=== PATIENT | female | born 1940 | race Caucasian/White ===

== ENCOUNTER 2023-07-03 17:13 | Observation (INO) | payer MEDICARE, SELFPAY ==
[2023-07-03] MEDS ORDERED: Ondansetron PF 4 MG/2 ML Vial IVP PRN (20:28)
[2023-07-03] MEDS ORDERED: Senokot S 8.6-50 MG TAB PO PRN (20:28)
[2023-07-03] MEDS ORDERED: Guaifenesin DM 100-10/5 ML UDCUP PO PRN (20:28)
[2023-07-03] MEDS ORDERED: Acetaminophen 325 MG TAB PO PRN (20:28)
[2023-07-03] MEDS ORDERED: Calcium Carbonate 500 MG ChewTAB PO PRN (20:28)
[2023-07-03 20:46] VITALS: BMI 17.9
[2023-07-03] MEDS ORDERED: Tacrolimus 1 MG CAP PO SCH (21:00)
[2023-07-03] MEDS ORDERED: Lidocaine 2% Viscous Solution 10 ML, Aluminum & Magnesium Hydroxide 30 ML SSW SCH (21:00)
[2023-07-03] MEDS ORDERED: Famotidine/PF 20 mg/2ml Vial SLOW IVP SCH (21:00)
[2023-07-03 21:07] LABS: Anion Gap 14 mmol/L (10-20); BUN (Urea Nitrogen) 16 mg/dL (9.8-20.1); Calc. Creatinine Clearance 31 mL/min (70-130); Calcium 7.8 mg/dL (7.8-10.44); Carbon Dioxide 21 mmol/L (23-31); Chloride 105 mmol/L (98-107); Estimated GFR 50; Glucose 263 mg/dL (83-110); Magnesium 2.2 mg/dL (1.6-2.6); Sodium 136 mmol/L (136-145)
[2023-07-03 21:11] LABS: Troponin I 0.011 ng/mL (< 0.028)
[2023-07-03 21:20] LABS: Lipase Less than 4 U/L (8-78)
[2023-07-03] MEDS ORDERED: Dextrose 5% in Water 1,000 ML IV PRN (21:26)
[2023-07-03] MEDS ORDERED: Dextrose 50% Abboject 50 ML SYRINGE SLOW IVP PRN (21:26)
[2023-07-03] MEDS ORDERED: Glucagon 1 MG/ML KIT IM PRN (21:26)
[2023-07-03] MEDS: Metoprolol Tartrate 25 MG TAB PO SCH (21:55)
[2023-07-03] MEDS: Mycophenolate 250 MG CAP PO SCH (21:55)
[2023-07-03] MEDS: Pancrelipase DR 12,000 1 CAP PO SCH (21:56)
[2023-07-03] MEDS: Tacrolimus 0.5 MG CAP PO SCH (21:56)
[2023-07-03] MEDS: HumaLOG 300 UNITS/3 ML VIAL SC PRN (22:21)
[2023-07-04 02:15] LABS: Bilirubin Neg (Negative); Blood, Urine Negative (Negative); Glucose, Urine (Dipstick) 50 mg/dL (Negative); Ketone, Urine Negative (Negative); Leukocyte Negative (Negative); Nitrite Negative (Negative); Protein, Urine (Dipstick) 100 mg/dl (Neg-Trace); Urobilinogen Normal mg/dL (Less than 2)
[2023-07-04 02:23] LABS: Bacteria/HPF Rare-Few HPF (None Seen); Clarity Clear (Clear); RBC/HPF 0-3 HPF (0-3); Squamous Epithelial 0-3 HPF (0-3); WBC/HPF 0-3 HPF (0-3)
[2023-07-04 04:16] LABS: ALT (SGPT) Less than 7 U/L (8-55); AST (SGOT) 16 U/L (5-34); Alkaline Phosphatase 85 U/L (40-110); Anion Gap 12 mmol/L (10-20); BUN (Urea Nitrogen) 16 mg/dL (9.8-20.1); Bilirubin, Total 0.3 mg/dL (0.2-1.2); Calc. Creatinine Clearance 38 mL/min (70-130); Calcium 7.7 mg/dL (7.8-10.44); Carbon Dioxide 20 mmol/L (23-31); Chloride 109 mmol/L (98-107); Estimated GFR 64; Globulin 2.4 g/dL (2.4-3.5); Glucose 148 mg/dL (83-110); Potassium 3.8 mmol/L (3.5-5.1); Protein, Total 5.4 g/dL (5.8-8.1); Sodium 137 mmol/L (136-145)
[2023-07-04] MEDS ORDERED: FLU VACC QS2023(65UP)/MF59C/PF 60 MCG/0.5 ML SYRINGE IM ONE (09:00)
[2023-07-04] MEDS: Tacrolimus 0.5 MG CAP PO SCH ×2 (09:02→21:49)
[2023-07-04] MEDS: Amlodipine 10 MG TAB PO SCH (09:03)
[2023-07-04] MEDS: Aspirin 81 mg Enteric Coated Tablet PO SCH (09:03)
[2023-07-04] MEDS: Pancrelipase DR 12,000 1 CAP PO SCH ×2 (09:04→21:49)
[2023-07-04] MEDS: Mycophenolate 250 MG CAP PO SCH ×2 (09:04→21:49)
[2023-07-04] MEDS: Metoprolol Tartrate 25 MG TAB PO SCH (09:04)
[2023-07-04 10:00] LABS: Hematocrit 24.3 % (34.9-44.5); Hemoglobin 8.2 g/dL (12.0-15.5); Manual Diff?? YES; Mean Corpuscular HGB CONC 33.7 g/dL (32.0-36.0); Mean Corpuscular Hemoglobin 28.8 pg (27.0-33.0); Mean Corpuscular Volume 85.3 fl (81.6-98.3); Mean Platelet Volume 10.9 fl (7.4-10.4); Platelet Count 169 10x3/uL (150-450); RBC Distribution Width 13.9 % (11.5-14.5); Red Blood Cell (RBC) Count 2.85 10x6/uL (3.90-5.03); White Blood Cell (WBC) Count 3.4 10x3/uL (3.5-10.5)
[2023-07-04 10:47] LABS: Eosinophils 2 % (0-10); Lymphocytes 23 % (21-51); Monocytes 9 % (0-10); Neutrophil 66 % (42-75)
[2023-07-04 10:48] LABS: Hypochromia SLIGHT = 6-15 cells (100X) (0-5/hpf); Platelet Adequacy Comment Appears Adequate
[2023-07-04] MEDS: HumaLOG 300 UNITS/3 ML VIAL SC PRN ×2 (12:55→21:50)
[2023-07-04] MEDS ORDERED: Metoprolol Tartrate 50 MG TAB PO SCH (14:30)
[2023-07-04 17:37] LABS: Hemoglobin A1c 7.9 % (4.0-6.0)
[2023-07-04] MEDS ORDERED: Famotidine 20 MG TAB PO SCH (21:00)
[2023-07-05 04:53] LABS: #Eosinphils 0.1 10x3/uL (0.0-0.5); #Monocytes 0.3 10x3/uL (0.0-1.1); %Basophils 0.3 % (0.0-2.0); %Eosinophils 2.5 % (0.0-6.0); %Lymphocytes 30.9 % (18.0-47.0); %Monocytes 9.3 % (0.0-10.0); %Neutrophils 55.6 % (40.0-75.0); Hematocrit 23.9 % (34.9-44.5); Hemoglobin 7.9 g/dL (12.0-15.5); Mean Corpuscular HGB CONC 33.1 g/dL (32.0-36.0); Mean Corpuscular Hemoglobin 28.4 pg (27.0-33.0); Mean Platelet Volume 11.4 fl (7.4-10.4); Platelet Count 162 10x3/uL (150-450); RBC Distribution Width 13.8 % (11.5-14.5); Red Blood Cell (RBC) Count 2.78 10x6/uL (3.90-5.03); White Blood Cell (WBC) Count 3.7 10x3/uL (3.5-10.5)
[2023-07-05 05:22] LABS: Anion Gap 11 mmol/L (10-20); BUN (Urea Nitrogen) 19 mg/dL (9.8-20.1); Calc. Creatinine Clearance 36 mL/min (70-130); Calcium 8.2 mg/dL (7.8-10.44); Carbon Dioxide 21 mmol/L (23-31); Chloride 109 mmol/L (98-107); Estimated GFR 59; Glucose 108 mg/dL (83-110); Potassium 4.2 mmol/L (3.5-5.1); Sodium 137 mmol/L (136-145)
[2023-07-05 05:46] LABS: Troponin I 0.017 ng/mL (< 0.028)
[2023-07-05] MEDS ORDERED: Metoprolol Tartrate 50 MG TAB PO SCH (09:00)
[2023-07-05] MEDS: Aspirin 81 mg Enteric Coated Tablet PO SCH (09:03)
[2023-07-05] MEDS: Mycophenolate 250 MG CAP PO SCH (09:03)
[2023-07-05] MEDS: Amlodipine 10 MG TAB PO SCH (09:03)
[2023-07-05] MEDS: Tacrolimus 0.5 MG CAP PO SCH (09:04)
[2023-07-05] MEDS: Pancrelipase DR 12,000 1 CAP PO SCH (09:04)
[2023-07-05 12:46] VITALS: BP 171/75; TEMP 97.6
[2023-07-05] MEDS ORDERED: Famotidine 20 MG TAB PO SCH (21:00)
== END 2023-07-05 12:59 | disposition home or self-care (01) ==
LOC: CSHTELE 20:05 → INTOOBSV 20:05
PROVIDERS: ADMIT Hospitalist; ATTEND Hospitalist
DX: R10.13 Epigastric pain (principal); I12.9 Hypertensive chronic kidney disease with stage 1 through stage 4 chronic kidney disease, or unspecified chronic kidney disease; E11.22 Type 2 diabetes mellitus with diabetic chronic kidney disease; N18.9 Chronic kidney disease, unspecified; D63.1 Anemia in chronic kidney disease; R07.9 Chest pain, unspecified; I25.10 Atherosclerotic heart disease of native coronary artery without angina pectoris; E78.5 Hyperlipidemia, unspecified; K21.9 Gastro-esophageal reflux disease without esophagitis; E83.42 Hypomagnesemia; E87.6 Hypokalemia; Z90.49 Acquired absence of other specified parts of digestive tract; Z95.5 Presence of coronary angioplasty implant and graft; Z79.899 Other long term (current) drug therapy; Z79.4 Long term (current) use of insulin; Z79.82 Long term (current) use of aspirin; Z87.891 Personal history of nicotine dependence; Z91.011 Allergy to milk products
CPT/HCPCS: 36430; 71045; 80048 ×2; 81001; 82962 ×2; 83036; 83690; 83735; 83880; 84484 ×2; 85025; 86850; 86900; 86901; 86920; 96374; G0378 ×3; P9016; 36415; 36416; 80053; 82274; 84443; J1650; J1815; J7507; J7517; S0028

== ENCOUNTER 2024-08-15 16:09 | Emergency (ER) | payer MEDICARE ==
[~2024-08-15 16:09] MED LIST: Iopamidol 300 61% 100 ML VIAL FS ONE
[2024-08-15] MEDS ORDERED: Pantoprazole 40 MG VIAL ONE (16:34)
[2024-08-15 16:45] LABS: #Basophils Less than 0.03 10x3/uL (0.0-0.2); #Eosinophils 0.08 10x3/uL (0.0-0.5); #Monocytes 0.32 10x3/uL (0.0-1.1); #Neutrophils 4.38 10x3/uL (1.5-8.4); %Basophils 0.3 % (0.0-2.0); %Eosinophils 1.3 % (0.0-6.0); %Lymphocytes 19.8 % (18.0-47.0); %Monocytes 5.3 % (0.0-10.0); %Neutrophils 72.8 % (40.0-75.0); Hematocrit 25.5 % (34.9-44.5); Hemoglobin 8.1 g/dL (12.0-15.5); Mean Corpuscular HGB CONC 31.8 g/dL (32.0-36.0); Mean Corpuscular Hemoglobin 27.6 pg (27.0-33.0); Mean Platelet Volume 10.9 fL (7.4-10.4); Platelet Count 233 10x3/uL (150-450); RBC Distribution Width 17.3 % (11.5-14.5); Red Blood Cell (RBC) Count 2.93 10x6/uL (3.90-5.03); White Blood Cell (WBC) Count 6.02 10x3/uL (3.5-10.5)
[2024-08-15 16:58] LABS: INR-International Normal Ratio 1.2; PTT 28.2 sec (22.0-33.0); Prothrombin Time 13.2 sec (9.5-12.1)
[2024-08-15 16:59] LABS: ALT (SGPT) 12 U/L (8-55); AST (SGOT) 16 U/L (5-34); Albumin 1.6 g/dL (3.4-4.8); Alkaline Phosphatase 110 U/L (40-110); Anion Gap 9 mmol/L (10-20); BUN (Urea Nitrogen) 18 mg/dL (9.8-20.1); Bilirubin, Total 0.2 mg/dL (0.2-1.2); Calc. Creatinine Clearance 0 mL/min (70-130); Calcium 7.2 mg/dL (7.8-10.44); Carbon Dioxide 15 mmol/L (23-31); Chloride 113 mmol/L (98-107); Estimated GFR 35; Globulin 2.6 g/dL (2.4-3.5); Glucose 105 mg/dL (83-110); Potassium 5.1 mmol/L (3.5-5.1); Protein, Total 4.2 g/dL (5.8-8.1); Sodium 132 mmol/L (136-145)
== END 2024-08-15 17:43 ==
LOC: CSHERS 16:09
DX: D64.9 Anemia, unspecified (principal); E88.09 Other disorders of plasma-protein metabolism, not elsewhere classified; E87.20 Acidosis, unspecified; J90 Pleural effusion, not elsewhere classified; I10 Essential (primary) hypertension; I48.91 Unspecified atrial fibrillation; E11.9 Type 2 diabetes mellitus without complications; K21.9 Gastro-esophageal reflux disease without esophagitis; Z79.82 Long term (current) use of aspirin; Z79.899 Other long term (current) drug therapy
CPT/HCPCS: 74177; 80053; 85025; 85610; 85730; 86850; 86900; 86901; 93005; 96374; 99284; J2470; Q9967; 93010